=== PATIENT | female | born 2000 | race African-American/Black ===

== ENCOUNTER 2020-08-29 21:49 | Emergency (ER) | payer OTHER ==
[~2020-08-29] VITALS: Ht 162.6 cm; Wt 56.1 kg
[2020-08-29] MEDS ORDERED: NAPR220C14 PO (21:57)
[2020-08-29 22:35] LABS: BASO % 0.4 % (0.0-1.0); EOS # 0.1 10^3/uL (0.0-0.5); EOS % 1.6 % (0.0-3.0); HEMATOCRIT 39.6 % (36.0-47.0); HEMOGLOBIN 12.5 g/dl (12.0-15.5); LYMPH # 2.8 10^3/uL (1.5-5.0); LYMPH % 42.1 % (24.0-44.0); MEAN CORPUSCULAR HEMOGLOBIN 26.7 pg (27.0-33.0); MEAN CORPUSCULAR HGB CONC 31.6 g/dl (32.0-36.5); MEAN CORPUSCULAR VOLUME 84.6 fl (80.0-96.0); MONO # 0.8 10^3/uL (0.0-0.8); MONO % 12.5 % (2.0-8.0); NEUTROPHILS # 2.9 10^3/uL (1.5-8.5); NEUTROPHILS % 43.3 % (36.0-66.0); PLATELET COUNT, AUTOMATED 240 10^3/uL (150-450); RED BLOOD COUNT 4.68 10^6/uL (4.00-5.40); WHITE BLOOD COUNT 6.7 10^3/uL (4.0-10.0)
[2020-08-29 22:55] LABS: BLOOD UREA NITROGEN 14 MG/DL (7-18); CALCIUM LEVEL 9.4 MG/DL (8.5-10.1); CARBON DIOXIDE LEVEL 28 MEQ/L (21-32); CHLORIDE LEVEL 106 MEQ/L (98-107); CREATININE FOR GFR 0.79 MG/DL (0.55-1.30); GLUCOSE, FASTING 94 MG/DL (70-100); POTASSIUM SERUM 3.9 MEQ/L (3.5-5.1); SODIUM LEVEL 139 MEQ/L (136-145)
[2020-08-29 23:31] VITALS: BP 116/55
== END 2020-08-30 00:14 | disposition home or self-care (01) ==
LOC: M ED 21:49
DX: N92.0 Excessive and frequent menstruation with regular cycle (principal); D50.9 Iron deficiency anemia, unspecified

== ENCOUNTER 2020-09-15 12:09 | Emergency (ER) | payer OTHER ==
[~2020-09-15] VITALS: Ht 162.6 cm; Wt 55.9 kg
[~2020-09-15 12:09] MED LIST: NAPR220C14 PO
[2020-09-15 13:53] LABS: BASO % 0.3 % (0.0-1.0); EOS # 0.1 10^3/uL (0.0-0.5); EOS % 1.2 % (0.0-3.0); HEMATOCRIT 42.1 % (36.0-47.0); HEMOGLOBIN 13.3 g/dl (12.0-15.5); LYMPH # 2.2 10^3/uL (1.5-5.0); LYMPH % 31.9 % (24.0-44.0); MEAN CORPUSCULAR HEMOGLOBIN 26.7 pg (27.0-33.0); MEAN CORPUSCULAR HGB CONC 31.6 g/dl (32.0-36.5); MEAN CORPUSCULAR VOLUME 84.4 fl (80.0-96.0); MONO # 0.5 10^3/uL (0.0-0.8); MONO % 7.1 % (2.0-8.0); NEUTROPHILS # 4.1 10^3/uL (1.5-8.5); NEUTROPHILS % 59.4 % (36.0-66.0); PLATELET COUNT, AUTOMATED 235 10^3/uL (150-450); RED BLOOD COUNT 4.99 10^6/uL (4.00-5.40); WHITE BLOOD COUNT 6.9 10^3/uL (4.0-10.0)
[2020-09-15 14:21] LABS: ALBUMIN 3.9 GM/DL (3.2-5.2); ALT/SGPT 14 U/L (12-78); BILIRUBIN,DIRECT < 0.1 MG/DL (0.0-0.2); BILIRUBIN,TOTAL 0.3 MG/DL (0.2-1.0); BLOOD UREA NITROGEN 7 MG/DL (7-18); CARBON DIOXIDE LEVEL 26 MEQ/L (21-32); CHLORIDE LEVEL 109 MEQ/L (98-107); GLUCOSE, FASTING 79 MG/DL (70-100); HCG, SERUM QUANTITATIVE < 1.0 MIU/ML; LIPASE 98 U/L (73-393); POTASSIUM SERUM 4.4 MEQ/L (3.5-5.1); SODIUM LEVEL 139 MEQ/L (136-145); TOTAL PROTEIN 7.6 GM/DL (6.4-8.2)
--- NOTE | 2020-09-15 15:20 | REP ---
INDICATION: RUQ pain, n/v. COMPARISON: None. TECHNIQUE: Real-time sonographic evaluation of right upper quadrant performed. FINDINGS: The gallbladder demonstrates no evidence of intraluminal sludge or calculi, wall thickening or pericholecystic fluid. There is no intrahepatic or extrahepatic biliary dilatation, common bile duct measures 2 mm in maximum diameter. The liver demonstrates homogeneous echotexture with no gross mass. The pancreas demonstrates homogeneous echotexture with no gross mass. The right kidney demonstrates no hydronephrosis, with a normal size of 9.7 cm in length. No free fluid is seen. IMPRESSION: Negative right upper quadrant ultrasound. <Electronically signed by Milo Tinoco > 09/15/20 [id number]
[2020-09-15 15:27] VITALS: BP 117/62
== END 2020-09-15 15:34 | disposition home or self-care (01) ==
LOC: M ED 12:09
DX: R10.11 Right upper quadrant pain (principal); R10.12 Left upper quadrant pain; R11.2 Nausea with vomiting, unspecified; R19.7 Diarrhea, unspecified; D64.9 Anemia, unspecified

== ENCOUNTER 2021-03-02 04:30 | Emergency (ER) | payer OTHER ==
[~2021-03-02] VITALS: Ht 162.6 cm; Wt 54.5 kg
[2021-03-02] MEDS ORDERED: ONDANSETRON 4 MG ORAL DISINTEGRATING TAB PO ONE (07:25)
[2021-03-02] MEDS ORDERED: ONDA4TAB6 PO (08:05)
[2021-03-02 08:13] VITALS: BP 115/67
== END 2021-03-02 08:15 | disposition home or self-care (01) ==
LOC: M ED 04:30
DX: R11.2 Nausea with vomiting, unspecified (principal)
CPT/HCPCS: 80047; 84702; 99283; Q0162

== ENCOUNTER 2021-12-08 18:19 | Emergency (ER) | payer OTHER ==
[~2021-12-08] VITALS: Ht 162.6 cm; Wt 68.2 kg
[~2021-12-08 18:19] MED LIST changes: +ONDA4TAB6 PO
[2021-12-08 18:27] VITALS: BP 118/69
== END 2021-12-08 20:47 | disposition left against medical advice (07) ==
LOC: EDBD 18:19 → M ED 18:19
DX: Z53.21 Procedure and treatment not carried out due to patient leaving prior to being seen by health care provider (principal)

== ENCOUNTER 2022-04-25 07:13 | Inpatient (IN) | payer OTHER ==
[~2022-04-25] VITALS: Ht 162.6 cm; Wt 87.5 kg
[2022-04-25] VITALS (12 sets, daily range): BP systolic 121–166; BP diastolic 60–83
[2022-04-25] MEDS ORDERED: LACTATED RINGER'S 1000 ML IV STA (09:07)
[2022-04-25] MEDS ORDERED: OXYTOCIN DRIP 30 UNITS in IV 1 EA IV PRN ×4 (09:10)
[2022-04-25] MEDS ORDERED: TRANEXAMIC ACID INJection 1,000 MG in NS 100 ML IV PRN (09:10)
[2022-04-25] MEDS ORDERED: OXYTOCIN DRIP 30 UNITS in IV 1 EA IV SCH ×2 (09:10→22:00)
[2022-04-25] MEDS ORDERED: LIDOCAINE 1% MDV 20ML VIAL INFIL PRN (09:10)
[2022-04-25] MEDS ORDERED: METHYLERGONOVINE MALEATE 0.2 MG/ML VIAL (J2210) IM PRN (09:10)
[2022-04-25] MEDS ORDERED: BUTORPHANOL 2 MG/ML 1ML VIAL IV ONE (09:10)
[2022-04-25] MEDS ORDERED: CARBOPROST TROMETHAMINE 250 MCG/ML AMP IM PRN (09:10)
[2022-04-25] MEDS ORDERED: PROMETHAZINE 25MG/ML 1ML VIAL IM ONE (09:10)
[2022-04-25] MEDS ORDERED: LR 1,000 ML IV SCH ×2 (09:10→22:00)
[2022-04-25 09:31] LABS: HEMATOCRIT 31.6 % (36.0-47.0); HEMOGLOBIN 9.5 g/dl (12.0-15.5); MEAN CORPUSCULAR HGB CONC 30.1 g/dl (32.0-36.5); MEAN CORPUSCULAR VOLUME 76.5 fl (80.0-96.0); PLATELET COUNT, AUTOMATED 197 10^3/uL (150-450); RED BLOOD COUNT 4.13 10^6/uL (4.00-5.40); WHITE BLOOD COUNT 8.6 10^3/uL (4.0-10.0)
[2022-04-25] MEDS: LR 1,000 ML IV SCH ×2 (10:31→18:29)
[2022-04-25] MEDS ORDERED: ePHEDrine SULFATE 25 MG/5 ML(5MG/ML) SYRINGE IVP PRN (12:40)
[2022-04-25] MEDS ORDERED: FENTANYL/ROPIVACAINE/NACL BAG 100 ML EPIDURAL SCH (12:40)
[2022-04-25] MEDS ORDERED: NALOXONE INJ 0.4MG/1ML VIAL IV PRN (12:40)
[2022-04-25] MEDS ORDERED: ONDANSETRON 4MG 2ML VIAL IV PRN (12:40)
[2022-04-25] MEDS ORDERED: diphenhydrAMINE 50MG/ML VIAL IV PRN (12:40)
[2022-04-25] MEDS ORDERED: LR 500 ML IV PRN (12:40)
[2022-04-25] MEDS ORDERED: EPIDURAL/PCA KEYS XX PRN (12:40)
[2022-04-25] MEDS ORDERED: ANUSOL HC CREAM 30GM TOP PRN (22:00)
[2022-04-25] MEDS ORDERED: DOCUSATE SODIUM 100MG CAPSULE PO PRN (22:00)
[2022-04-25] MEDS ORDERED: RHOGAM 300MCG (1500IU) INJ IM SCH (22:00)
[2022-04-25] MEDS ORDERED: IBUPROFEN 600MG TAB PO PRN (22:00)
[2022-04-25] MEDS ORDERED: METHYLERGONOVINE MALEATE 0.2 MG TAB PO PRN (22:00)
[2022-04-25] MEDS ORDERED: ACETAMINOPHEN TAB 650MG DOSE (2X325MG) PO PRN (22:00)
[2022-04-25] MEDS ORDERED: DIBUCAINE 1% OINTMENT 30GM TOP PRN (22:00)
[2022-04-25] MEDS: ACETAMINOPHEN 500 MG TAB PO PRN (22:33)
[2022-04-25] MEDS: IBUPROFEN 800 MG TAB PO PRN (23:32)
[2022-04-26 05:40] VITALS: BP 121/59
[2022-04-26 06:24] LABS: HEMATOCRIT 29.3 % (36.0-47.0); HEMOGLOBIN 8.9 g/dl (12.0-15.5); MEAN CORPUSCULAR HEMOGLOBIN 23.2 pg (27.0-33.0); MEAN CORPUSCULAR HGB CONC 30.4 g/dl (32.0-36.5); MEAN CORPUSCULAR VOLUME 76.5 fl (80.0-96.0); PLATELET COUNT, AUTOMATED 200 10^3/uL (150-450); RED BLOOD COUNT 3.83 10^6/uL (4.00-5.40); WHITE BLOOD COUNT 14.9 10^3/uL (4.0-10.0)
[2022-04-26] MEDS: PRENATAL VITAMINS CHEWABLE TABLET PO SCH (08:57)
[2022-04-26] MEDS: IBUPROFEN 800 MG TAB PO PRN (08:58)
[2022-04-26] MEDS: ACETAMINOPHEN 500 MG TAB PO PRN ×2 (13:49→21:42)
[2022-04-26 17:58] VITALS: BP 134/74
[2022-04-27 06:00] VITALS: BP 120/64
[2022-04-27] MEDS: IBUPROFEN 800 MG TAB PO PRN (07:08)
[2022-04-27] MEDS: PRENATAL VITAMINS CHEWABLE TABLET PO SCH (08:04)
[2022-04-27] MEDS ORDERED: MEASLES,MUMPS,RUBELLA VACCINE INJ (MMR-II) SC.IMMUN ONE (09:00)
== END 2022-04-27 14:35 | disposition home or self-care (01) | DRG 807 ==
LOC: M LDO 07:13 → M LDI 08:38 → M OBS 23:18
PROVIDERS: ADMIT Advanced Practice Midwife; ATTEND Obstetrics & Gynecology
PROC: 10E0XZZ Delivery of Products of Conception, External Approach (ICD-10-PCS; principal; 2022-04-25)
PROC: 0KQM0ZZ Repair Perineum Muscle, Open Approach (ICD-10-PCS; 2022-04-25)
PROC: 0HQ9XZZ Repair Perineum Skin, External Approach (ICD-10-PCS; 2022-04-25)
DX: O42.02 Full-term premature rupture of membranes, onset of labor within 24 hours of rupture (principal); Z37.0 Single live birth; Z3A.38 38 weeks gestation of pregnancy; O69.81X0 Labor and delivery complicated by cord around neck, without compression, not applicable or unspecified; O70.1 Second degree perineal laceration during delivery; O70.0 First degree perineal laceration during delivery

== ENCOUNTER 2022-11-17 09:46 | Emergency (ER) | payer OTHER ==
[~2022-11-17] VITALS: Ht 162.6 cm; Wt 69.4 kg
[2022-11-17] MEDS ORDERED: IBUPROFEN 800 MG TAB PO ONE (12:05)
[2022-11-17 12:31] VITALS: BP 127/60; TEMP 96.2; O2SAT 100
== END 2022-11-17 12:34 | disposition home or self-care (01) ==
LOC: M ED 09:46
DX: S43.402A Unspecified sprain of left shoulder joint, initial encounter (principal); W19.XXXA Unspecified fall, initial encounter; Y92.009 Unspecified place in unspecified non-institutional (private) residence as the place of occurrence of the external cause